=== PATIENT | male | born 1980 | race Caucasian/White ===

== ENCOUNTER 2021-01-28 12:27 | Emergency (ER) | payer SELFPAY ==
[~2021-01-28] VITALS: Ht 170.2 cm; Wt 98.0 kg
[2021-01-28 12:48] VITALS: BP 155/98
[2021-01-28] MEDS: BACITRACIN ZINC TOPICAL OINT PACKET. TP ONE (13:30)
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
[2021-01-28] MEDS: DIPH,PERTUSS(ACELL),TET VAC/PF 0.5 ML SYRINGE. VAX IM ONE (14:21)
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
== END 2021-01-28 15:07 | disposition home or self-care (01) ==
LOC: ER 12:27
DX: S00.03XA Contusion of scalp, initial encounter (principal); V98.8XXA Other specified transport accidents, initial encounter; Y93.89 Activity, other specified; Y92.89 Other specified places as the place of occurrence of the external cause; Y99.8 Other external cause status
CPT/HCPCS: 70450; 72125; 90471; 90715; 99285-25